=== PATIENT | female | born 1990 | race Caucasian/White ===

== ENCOUNTER → 2017-11-16 16:04 | Outpatient (CLI) | payer MEDICAID, SELFPAY ==
[2017-11-16 19:18] LABS: Chlamydia Trachomatis by PCR Negative (Negative); Neisserai gonorrhoeae by PCR Negative (Negative); Probe Check PASS; Sample Adequacy Control PASS; Specimen Processing Control PASS
[2017-12-27 12:49] LABS: HPV Reflexed? NOT INDICATED
== END ==
PROVIDERS: Visit Provider Obstetrics & Gynecology
DX: Z12.4 Encounter for screening for malignant neoplasm of cervix (principal); Z11.3 Encounter for screening for infections with a predominantly sexual mode of transmission
CPT/HCPCS: 87491; 87591; 88175; G0145

== ENCOUNTER → 2017-12-13 15:16 | Outpatient (CLI) | payer MEDICAID, SELFPAY ==
[2017-12-13 15:45] LABS: Color, Urine Yellow (Yellow); Glucose, Dipstick Normal (Normal); Ketone-Dipstick Negative (Negative); Leukocyte Esterase-Dipstick Negative /ul (Negative); Nitrite-Dipstick Negative (Negative); Occult Blood-Urine Negative /ul (Negative); Protein-Dipstick 15 mg/dl (Negative); Urine Bilirubin Dipstick Negative (Negative); Urine Clarity Clear (Clear); Urine Urobilinogen 4 mg/dl (Normal); Urine pH 6.5 (5.0 - 8.0)
[2017-12-13 15:55] LABS: Absolute Lymphocyte Count 1.86 X10^3/ul (0.83-4.51); Absolute Neutrophil Count 8.6 X10^3/uL (2.0-7.7); Basophil# 0.02 X10^3/uL; Basophil% 0.2 % (0-1); Eosinophil# 0.04 X10^3/uL; Eosinophils% 0.4 % (0-5); Hematocrit 38.6 % (37-47); Hemoglobin 12.4 g/dl (12.0-15.0); Lymphocyte # 1.86 X10^3/ul (4.0); Mean Corp Hgb Conc 32.1 g/gl (32-36); Mean Corpuscular Hgb 25.5 pg (27.0-32.0); Mean Corpuscular Volume 79.4 fL (81-99); Mean Platelet Vol. 11.2 fl (6.2-12.0); Monocyte# 0.38 X10^3/uL; Monocyte% 3.5 % (0-10); Neutrophil # 8.61 X10^3/uL (2.7-7.7); Neutrophil % 78.7 % (47-70); Platelet Count 216 K/mm3 (150-450); RBC Distribution Width CV 16.8 % (11.6-14.6); RBC Distribution Width SD 48.3 fl (35.1-43.9); Red Blood Count 4.86 M/mm3 (4.2-5.4); White Blood Count 10.9 K/mm3 (4.4-11.0)
[2017-12-13 15:57] LABS: POSITIVE COUNT NO; POSITIVE DIFFERENTIAL NO; POSITIVE MORPHOLOGY NO
[2017-12-13 16:30] LABS: Thyroid Stim Hormone (TSH) 2.26 uIU/mL (0.358-3.74)
[2017-12-13 16:37] LABS: Amphetamine Urine VISTA NEGATIVE (<1000 ng/mL); Barbiturate Urine VISTA NEGATIVE (< 200 ng/mL); Benzodiazepine Urine VISTA NEGATIVE (< 200 ng/mL); Cocaine Urine VISTA NEGATIVE (< 300 ng/mL); Ecstacy Urine VISTA NEGATIVE (< 500 ng/mL); Methadone Urine VISTA NEGATIVE (< 300 ng/mL); PCP Urine VISTA NEGATIVE (< 25 ng/mL); THC Urine VISTA NEGATIVE (< 50 ng/mL); Vista UDS pH Range 7
[2017-12-13 16:58] LABS: COTININE Drug Screen Negative (<200 ng/mL)
[2017-12-13 17:10] LABS: HIV - WCH Non-Reactive (Nonreactive); Rubella IgG 112.1 IU/mL
[2017-12-15 01:58] LABS: Prenatal RPR NONREACTIVE (NONREACTIVE)
[2017-12-15 11:23] LABS: HEPATITIS B SURFACE AG Negative (Negative); Hep C Antibodies <0.1 s/co ratio (0.0-0.9)
== END ==
PROVIDERS: Visit Provider Obstetrics & Gynecology
DX: Z34.82 Encounter for supervision of other normal pregnancy, second trimester (principal)
CPT/HCPCS: 36415; 80307; 81002; 84443; 85025; 86703; 86762; 86803; 87340

== ENCOUNTER → 2018-02-08 15:38 | Outpatient (CLI) | payer MEDICAID, SELFPAY ==
[2018-02-08 17:38] LABS: Hematocrit 32.7 % (37-47); Hemoglobin 10.5 g/dl (12.0-15.0); Mean Corp Hgb Conc 32.1 g/gl (32-36); Mean Corpuscular Hgb 25.7 pg (27.0-32.0); Mean Platelet Vol. 11.6 fl (6.2-12.0); Platelet Count 208 K/mm3 (150-450); RBC Distribution Width CV 16.7 % (11.6-14.6); RBC Distribution Width SD 48.7 fl (35.1-43.9); Red Blood Count 4.09 M/mm3 (4.2-5.4); White Blood Count 11.6 K/mm3 (4.4-11.0)
[2018-02-08 17:44] LABS: Glucose Challenge Gest 1H 50g 166 mg/dL (70-140)
[2018-02-08 17:46] LABS: Scan Indicated on CBC? Y/N NO
== END ==
PROVIDERS: Visit Provider Obstetrics & Gynecology
DX: Z34.82 Encounter for supervision of other normal pregnancy, second trimester (principal)
CPT/HCPCS: 36415; 82950; 85027

== ENCOUNTER → 2018-03-14 07:03 | Outpatient (CLI) | payer MEDICAID, SELFPAY ==
[2018-03-14 08:19] LABS: Glucose GTT-Gestation. Fasting 88 mg/dL (<105)
[2018-03-14 09:13] LABS: Glucose GTT-Gestational 1 Hr 185 mg/dL (<190)
[2018-03-14 10:00] LABS: Glucose GTT-Gestational 2 Hr 144 mg/dL (<165)
[2018-03-14 10:55] LABS: Glucose GTT-Gestational 3 Hr 114 L (<145)
== END ==
PROVIDERS: Referring Provider Obstetrics & Gynecology; Visit Provider Obstetrics & Gynecology
DX: O24.912 Unspecified diabetes mellitus in pregnancy, second trimester (principal); Z3A.00 Weeks of gestation of pregnancy not specified
CPT/HCPCS: 36415; 82951; 82952

== ENCOUNTER → 2018-03-29 11:54 | Outpatient (CLI) | payer MEDICAID, SELFPAY ==
[2018-03-29 12:16] LABS: Hematocrit 35.9 % (37-47); Hemoglobin 11.5 g/dl (12.0-15.0); Mean Corpuscular Hgb 25.5 pg (27.0-32.0); Mean Corpuscular Volume 79.6 fL (81-99); Mean Platelet Vol. 10.8 fl (6.2-12.0); Platelet Count 228 K/mm3 (150-450); RBC Distribution Width CV 17.2 % (11.6-14.6); RBC Distribution Width SD 49.5 fl (35.1-43.9); Red Blood Count 4.51 M/mm3 (4.2-5.4); White Blood Count 11.9 K/mm3 (4.4-11.0)
[2018-03-29 12:17] LABS: Scan Indicated on CBC? Y/N NO
[2018-03-29 12:23] LABS: Prothrombin Time (Protime)PT. 12.8 SECONDS (11.7-14.9)
[2018-03-29 12:24] LABS: Partial Thromboplast Time 27.8 Seconds (24.1-36.2)
[2018-03-29 12:50] LABS: AST(SGOT) 19 U/L (15-37); Alanine Aminotransfer ALT/SGPT 35 U/L (13-56); Creatinine, Serum 0.57 mg/dL (0.55-1.02); EST Glomerular Filtration Rate 132 mL/min (>60); Est Glom Filt Rate - Afr Amer 159 mL/min (>60); Uric Acid 5.9 mg/dL (2.6-6.0)
== END ==
PROVIDERS: Visit Provider Obstetrics & Gynecology
DX: O13.9 Gestational [pregnancy-induced] hypertension without significant proteinuria, unspecified trimester (principal)
CPT/HCPCS: 36415; 82565; 84450; 84460; 84550; 85027; 85610; 85730

== ENCOUNTER → 2018-03-30 14:19 | Outpatient (CLI) | payer MEDICAID, SELFPAY ==
[2018-03-30 14:50] LABS: 24 Hour Urine Protein 449.9 mg/24HR (<150 MG/24HR); 24HR. UA Prot. Total Volume 1525 mL; Urine Protein (24 Hour) 29.5 mg/dL (<11.9)
== END ==
PROVIDERS: Referring Provider Obstetrics & Gynecology; Visit Provider Obstetrics & Gynecology
DX: O13.9 Gestational [pregnancy-induced] hypertension without significant proteinuria, unspecified trimester (principal); Z3A.00 Weeks of gestation of pregnancy not specified
CPT/HCPCS: 81050; 84156

== ENCOUNTER → 2018-04-05 11:29 | Outpatient (CLI) | payer MEDICAID, SELFPAY ==
[2018-04-05 12:18] LABS: Hematocrit 33.8 % (37-47); Hemoglobin 10.9 g/dl (12.0-15.0); Mean Corp Hgb Conc 32.2 g/gl (32-36); Mean Corpuscular Hgb 25.6 pg (27.0-32.0); Mean Corpuscular Volume 79.5 fL (81-99); Mean Platelet Vol. 11.4 fl (6.2-12.0); Platelet Count 216 K/mm3 (150-450); RBC Distribution Width CV 17.1 % (11.6-14.6); RBC Distribution Width SD 49.2 fl (35.1-43.9); Red Blood Count 4.25 M/mm3 (4.2-5.4); White Blood Count 10.1 K/mm3 (4.4-11.0)
[2018-04-05 12:23] LABS: Scan Indicated on CBC? Y/N NO
[2018-04-05 12:27] LABS: Prothrombin Time (Protime)PT. 12.7 SECONDS (11.7-14.9)
[2018-04-05 12:28] LABS: Partial Thromboplast Time 28.6 Seconds (24.1-36.2)
[2018-04-05 12:51] LABS: AST(SGOT) 17 U/L (15-37); Alanine Aminotransfer ALT/SGPT 28 U/L (13-56); Creatinine, Serum 0.73 mg/dL (0.55-1.02); EST Glomerular Filtration Rate 100 mL/min (>60); Est Glom Filt Rate - Afr Amer 121 mL/min (>60); Uric Acid 6.7 mg/dL (2.6-6.0)
== END ==
PROVIDERS: Visit Provider Obstetrics & Gynecology
DX: Z34.83 Encounter for supervision of other normal pregnancy, third trimester (principal); Z36.85 Encounter for antenatal screening for Streptococcus B
CPT/HCPCS: 36415; 82565; 84450; 84460; 84550; 85027; 85610; 85730; 87081

== ENCOUNTER → 2018-04-06 16:26 | Outpatient (CLI) | payer MEDICAID, SELFPAY ==
[2018-04-06 17:09] LABS: 24HR. UA Prot. Total Volume 1500 mL
== END ==
PROVIDERS: Referring Provider Obstetrics & Gynecology; Visit Provider Obstetrics & Gynecology
DX: Z34.83 Encounter for supervision of other normal pregnancy, third trimester (principal); Z36.85 Encounter for antenatal screening for Streptococcus B
CPT/HCPCS: 84156

== ENCOUNTER 2018-04-12 05:25 | Inpatient (IN) | payer MEDICAID, SELFPAY ==
[2018-04-12] VITALS (26 sets, daily range): BP systolic 133–182; BP diastolic 69–100; PULSE 74–94; RESP 14–20; TEMP 36.2–36.7; O2SAT 97–100; BMI 53.1
[2018-04-12] MEDS: Lactated Ringers 1,000 ML 999 ML IV ×2 (05:50→09:50)
[2018-04-12 06:23] LABS: Absolute Lymphocyte Count 2.97 X10^3/ul (0.83-4.51); Absolute Neutrophil Count 7.8 X10^3/uL (2.0-7.7); Basophil# 0.03 X10^3/uL; Basophil% 0.3 % (0-1); Eosinophil# 0.03 X10^3/uL; Eosinophils% 0.3 % (0-5); Hematocrit 33.1 % (37-47); Hemoglobin 10.7 g/dl (12.0-15.0); Lymphocyte # 2.97 X10^3/ul (4.0); Lymphocyte % 26.1 % (19-41); Mean Corp Hgb Conc 32.3 g/gl (32-36); Mean Corpuscular Hgb 25.7 pg (27.0-32.0); Mean Corpuscular Volume 79.6 fL (81-99); Mean Platelet Vol. 11.3 fl (6.2-12.0); Monocyte# 0.55 X10^3/uL; Monocyte% 4.8 % (0-10); Neutrophil # 7.79 X10^3/uL (2.7-7.7); Neutrophil % 68.2 % (47-70); Platelet Count 215 K/mm3 (150-450); RBC Distribution Width CV 16.9 % (11.6-14.6); RBC Distribution Width SD 48.6 fl (35.1-43.9); Red Blood Count 4.16 M/mm3 (4.2-5.4); White Blood Count 11.4 K/mm3 (4.4-11.0)
[2018-04-12 06:29] LABS: POSITIVE COUNT NO; POSITIVE DIFFERENTIAL NO; POSITIVE MORPHOLOGY NO
[2018-04-12 06:30] LABS: International Normalized Ratio 1.1; Prothrombin Time (Protime)PT. 13.5 SECONDS (11.7-14.9)
[2018-04-12 06:31] LABS: Partial Thromboplast Time 27.4 Seconds (24.1-36.2)
[2018-04-12] MEDS: Sodium Citrate/Citric Acid 30 ML UDC PO (06:53)
[2018-04-12] MEDS: Lactated Ringers 1,000 ML 150 ML IV (06:56)
--- NOTE | 2018-04-12 07:04 | DCINST_ITS ---
Discharge Diet: No Restrictions Discharge Activity: Return to Normal Activity, May Not Drive, May not drive while taking narcotic pain medications., May Shower Return to work on:: 06/11/18 May shower in (days): 0 May resume sexual activity in: 4-6 weeks Call your doctor if your incision/area has: Sudden Increased Bleeding, Increased Pain/ Swelling, Increased Redness, Foul Smelling Discharge, Swelling at the incision site Call your doctor if you observe: Fever of 101 or Higher, Inability to urinate, Inability to have a bowel movement, Using more than one pad per hour, Shortness of breath, Chest pain, Calf discomfort, Uncontrolled pain, - - uncontrolled headache Cleanse incision/area with: Soap & Water Additional Instructions: If you experience any of the following, contact your healthcare provider. * Bleeding that soaks a pad every hour for 2 hours * Fever 100.4 or higher * Unrelieved incision or abdominal pain * Swelling, redness, discharge or bleeding from your incision or episiotomy site * Your incision begins to separate * Problems urinating (including inability to urinate or burning while urinating). * Visual changes * Severe headache * Flu-like symptoms * Pain or redness in one of both of your breasts * Pain, warmth, tenderness or swelling in your legs, especially the calf area * Frequent nausea and vomiting * Symptoms of depression or anxiety If you experience any of the following, call 911 or go to the nearest Emergency Room. * Chest pain * Problems breathing * Seizure activity * Partial or complete paralysis of a body part, slurred speech, weakness or drooping of the face, or a sudden inability to walk or hold your balance Allergies/Adverse Reactions: Allergies No Known Allergies Allergy (Verified 04/12/18 05:56) Medications to take at Discharge Ibuprofen 600 mg PO 4X/DAY #30 tab 04/12/18 Oxycodone [Oxyir] 5 - 10 mg PO Q4H PRN PRN 7 Days #20 tab 04/12/18 Vits [Prenatabs FA ] 1 tablet PO DAILY 04/12/18 The following prescriptions were given: Oxycodone [Oxyir] 5 - 10 mg PO Q4H PRN PRN 7 Days #20 tab PRN Reason: Mod-Severe Pain () Ibuprofen 600 mg PO 4X/DAY #30 tab Follow-Up: Call to make an appointment with your doctor for an incision check in 1-2 weeks. You will also need a 6 week post- follow up appointment. Test results from this visit will be discussed in further detail at your follow- up appointment, if applicable. Please Follow Up With: Gabriel Sow MD When: one week Primary Care Physician: Care Physician,No Primary [Primary Care Provider] - Proposed Discharge Date: 04/14/18
--- NOTE | 2018-04-12 07:05 | PCM.OPRPT ---
Problem List (1) Pre-eclampsia added to pre-existing hypertension Status: Chronic Report of Operation Date of Procedure: 04/12/18 Pre-Operative Diagnosis: 36 6/7 weeks with superimposed preeclampsia on chronic hypertension Post-Operative Diagnosis: Same Surgery/Procedure Performed:: Repeat Low Transverse Section Description of Surgical Findings:: Significant scarring present between anterior uterine surface and anterior abdominal wall. Bladder adherant to the lower anterior uterine segment. Lower uterine segemnt extremely thin. Ovaries and fallopian tubes appeared normal. Delivery of a live male with APGARs 8/9. Placenta anterior. Amniotic fluid clear. vice president payer: Lonnie Schwartz Type of Anesthesia:: Spinal Anesthesiologist: Karthik Hernandez Special Medications: none Specimen's removed: none Drains: casper Estimated Blood Loss (mL): 400cc Fluids Replaced: 1100cc lr Description of Procedure: Missy was counselled on indications for the procedure prior to taking to the OR. She was taken to the OR with IV running. She was given three grams of Ancef intravenously for surgical prophylaxis. Spinal anesthesia was introduced without complication. She was then prepped and draped in the supine position with a leftward tilt. A casper catheter was placed. Once anesthesia was deemed adequate a Pfannesteil skin incision was made through the previous scar. The underlying subcutaneous tissue was then dissected down to the level of the fascia. The fascia was then incised horizontally in the midline and this defect was extended bilaterally with the Newell scissors. The upper portion of the fascial defect was then grasped with two Dean clamps, elevated and the underlying rectus muscles dissected off with sharp and blunt dissection. In a similar fashion the rectus muscles were dissected off the lower fascial defect. The rectus muscles were then in the midline, the peritoneum identified and entered sharply. The peritoneal defect was extended using blunt retraction. A bladder blade was then placed. The lower uterine segment was then incised in a transverse fashion. Once the cavity was entered the uterine defect was extended using blunt lateral and superior traction. The baby's head was then delivered without difficulty followed by the body. The nares and mouth were suctioned with a bulb suction. Delayed cord clamping was employed. The cord was then clamped and cut and the baby handed to the waiting nurse for evaluation. The placenta was then delivered manually. Adhesions between the anterior uterine segment and omentum and abdominal wall were dissected to allow exteriorization of the uterus.The uterus was exteriorized and cleared of all clot and membranes. The uterine defect was then closed in two layers with 0-Vicryl suture. The posterior cul de sac and gutters were cleared of all clot and fluid. The uterus was returned to the abdomen. The uterine incision was reinspected and found to be hemostatic. The peritoneum was then closed with 2-0 Vicryl in a running fashion. The rectus muscles were reapproximated with interrupted sutures of 0-Vicryl. The fashion was closed with a running stitch of #1 Stratofix suture. The subcutaneous tissue was closed with a running stitch of 2-0 Vicryl. The skin was closed in a subcuticular fashion with 4-0 Monocryl. Sponge, lap, needle, and instrument counts were correct. She was taken to the recovery room in stable condition. Grafts/Implants Used: Gina to anterior surface of uterus and subcutaneous layer - Complications none - Admit VTE Documentation VTE Present on Admission: No VTE Mechan Device Prophylaxis: SCD's VTE Pharm Prophylaxis ordered?: No
--- NOTE | 2018-04-12 07:18 | OP.PCM_ITS ---
Problem List (1) Pre-eclampsia added to pre-existing hypertension Status: Chronic Report of Operation Date of Procedure: 04/12/18 Pre-Operative Diagnosis: 36 6/7 weeks with superimposed preeclampsia on chronic hypertension Post-Operative Diagnosis: Same Surgery/Procedure Performed:: Repeat Low Transverse Section Description of Surgical Findings:: Significant scarring present between anterior uterine surface and anterior abdominal wall. Bladder adherant to the lower anterior uterine segment. Lower uterine segemnt extremely thin. Ovaries and fallopian tubes appeared normal. Delivery of a live male with APGARs 8/9. Placenta anterior. Amniotic fluid clear. pneumatic tube fitter: Lonnie Schwartz Type of Anesthesia:: Spinal Anesthesiologist: Karthik Hernandez Special Medications: none Specimen's removed: none Drains: casper Estimated Blood Loss (mL): 400cc Fluids Replaced: 1100cc lr Description of Procedure: Missy was counselled on indications for the procedure prior to taking to the OR. She was taken to the OR with IV running. She was given three grams of Ancef intravenously for surgical prophylaxis. Spinal anesthesia was introduced with out complication. She was then prepped and draped in the supine position with a leftward tilt. A casper catheter was placed. Once anesthesia was deemed adequate a Pfannesteil skin incision was made through the previous scar. The underlying subcutaneous tissue was then dissected down to the level of the fascia. The fascia was then incised horizontally in the midline and this defect was extended bilaterally with the Newell scissors. The upper portion of the fascial defect was then grasped with two Dean clamps, elevated and the underlying rectus muscles dissected off with sharp and blunt dissection. In a similar fashion the rectus muscles were dissected off the lower fascial defect. The rectus muscles were then in the midline, the peritoneum identified and entered sharply. The peritoneal defect was extended using blunt retraction. A bladder blade was then placed. The lower uterine segment was then incised in a transverse fashion. Once the cavity was entered the uterine defect was extended using blunt lateral and superior traction. The baby's head was then delivered without difficulty followed by the body. The nares and mouth were suctioned with a bulb suction. Delayed cord clamping was employed. The cord was then clamped and cut and the baby handed to the waiting nurse for evaluation. The placenta was then delivered manually. Adhesions between the anterior uterine segment and omentum and abdominal wall were dissected to allow exteriorization of the uterus.The uterus was exteriorized and cleared of all clot and membranes. The uterine defect was then closed in two layers with 0- Vicryl suture. The posterior cul de sac and gutters were cleared of all clot and fluid. The uterus was returned to the abdomen. The uterine incision was reinspected and found to be hemostatic. The peritoneum was then closed with 2-0 Vicryl in a running fashion. The rectus muscles were reapproximated with interrupted sutures of 0-Vicryl. The fashion was closed with a running stitch of #1 Stratofix suture. The subcutaneous tissue was closed with a running stitch of 2-0 Vicryl. The skin was closed in a subcuticular fashion with 4-0 Monocryl. Sponge, lap, needle, and instrument counts were correct. She was taken to the recovery room in stable condition. Grafts/Implants Used: Gina to anterior surface of uterus and subcutaneous layer - Complications none - Admit VTE Documentation VTE Present on Admission: No VTE Mechan Device Prophylaxis: SCD's VTE Pharm Prophylaxis ordered?: No
[2018-04-12] MEDS: Oxytocin 30 units/NS 500 ml 30 UNITS/500 ML IV.SOLN 167 UNITS IV (07:53)
[2018-04-12] MEDS: Lactated Ringers 1,000 ML 100 ML IV ×3 (09:12→22:34)
--- NOTE | 2018-04-12 10:30 | NURSING ---
chris from dr velázquez office notified of last 3 bp's 169/91 170/92 163/82 states she will report these to dr velázquez and call us back
[2018-04-12] MEDS: Methylergonovine 0.2 MG/ML Ampul IM (11:48)
[2018-04-12] MEDS: Labetalol 200 MG Tablet PO ×2 (11:49→18:31)
[2018-04-12] MEDS: oxyCODONE 5 MG Tablet PO ×2 (13:15→20:35)
[2018-04-12] MEDS: Ondansetron 4 MG/2 ML Vial IV (15:08)
[2018-04-12] MEDS: Cefazolin 1 GM/50 ML BAG IV ×2 (15:09→23:52)
[2018-04-12] MEDS: 0.9% Saline Lock 10 ML Syringe IV (15:09)
--- NOTE | 2018-04-12 16:03 | NURSING ---
[address] velázquez office to notify of BP's phone rings busy
--- NOTE | 2018-04-12 16:04 | NURSING ---
[address] velázquez office a second time to notify of elevated BP's phone rings busy a second time
--- NOTE | 2018-04-12 17:12 | NURSING ---
1600 pericare, bleeding small rubra. Assisted up to chair.Gait steady
--- NOTE | 2018-04-12 17:53 | PCM.PN.BLA ---
Progress Note Patient seen. Denies headache, vision changes, shortness of breath or upper abdominal pain. Pain is controlled. She has been out of bed and is sitting in chair on visit. VSS, BPs 130s-180s/70s-100s . Patient denies hx HTN outside of pregnancies. Cannot recall hypertensive she took during G1, but notes it did not work. Repeat BP 157/96. Will give additional dose Labetalol now and increase maintenance dosing.
[2018-04-12 19:05] LABS: AST(SGOT) 44 U/L (15-37); Alanine Aminotransfer ALT/SGPT 40 U/L (13-56); Creatinine, Serum 0.62 mg/dL (0.55-1.02); EST Glomerular Filtration Rate 121 mL/min (>60); Est Glom Filt Rate - Afr Amer 146 mL/min (>60); Estimated Creatinine Clearance 120.47 ml/min
[2018-04-12] MEDS: Labetalol 200 MG Tablet 400 MG PO (21:38)
[2018-04-12] MEDS: Ketorolac 30 MG/ML Syringe IV (23:52)
[2018-04-13] VITALS (7 sets, daily range): BP systolic 129–170; BP diastolic 66–89; PULSE 79–96; RESP 16–20; TEMP 36.1–37.1; O2SAT 94–97
[2018-04-13] MEDS: Ketorolac 30 MG/ML Syringe IV ×2 (06:57→12:21)
[2018-04-13 07:13] LABS: Hematocrit 25.4 % (37-47); Hemoglobin 8.1 g/dl (12.0-15.0); Mean Corp Hgb Conc 31.9 g/gl (32-36); Mean Corpuscular Volume 81.7 fL (81-99); Mean Platelet Vol. 11.3 fl (6.2-12.0); Platelet Count 145 K/mm3 (150-450); RBC Distribution Width CV 17.1 % (11.6-14.6); RBC Distribution Width SD 49.2 fl (35.1-43.9); Red Blood Count 3.11 M/mm3 (4.2-5.4); Scan Indicated on CBC? Y/N NO; White Blood Count 7.8 K/mm3 (4.4-11.0)
[2018-04-13] MEDS: oxyCODONE 5 MG Tablet PO ×2 (07:20→12:21)
--- NOTE | 2018-04-13 08:33 | PN.OBGYN_ITS ---
Subjective: Doing well. Pain reasonably controlled. Tolerating PO. Bleeding light. Pumping breast milk. Objective: Afeb VSS BP good on labetalol. - Physical Exam General: Alert, Oriented x3, Cooperative, No apparent distress Lungs: Clear to auscultation, Normal air movement Cardiovascular: Regular rate, Regular Rhythm Abdomen: Soft, Non Tender, Non-Distended, - - Incision dressing dry. No erythema Extremities: Edema - 1+ Skin: No rashes Neurological: Neuro grossly intact Psych/Mental Status: Normal Affect Comment: Lochia light Vital Signs Temp Pulse Resp BP Pulse Ox 97.0 F L 82 16 134/74 H 97 04/13/18 03:50 04/13/18 07:00 04/13/18 07:00 04/13/18 03:50 04/13/18 07:00 Oxygen Delivery Method Room Air Weight: 319 lb 7.197 oz Body Mass Index (BMI) 53.1 Intake and Output for Last 24 Hours 04/11/18 04/12/18 04/13/18 23:59 23:59 23:59 Intake Total 3600 / 3600 2310 / 2310 Output Total 150 / 150 1400 / 1400 Balance 3450 / 3450 910 / 910 Laboratory Tests Past 24 Hrs 04/12/18 04/13/18 18:20 07:00 WBC 7.8 RBC 3.11 L Hgb 8.1 L Hct 25.4 L MCV 81.7 MCH 26.0 L MCHC 31.9 L RDW 17.1 H RDW Differential 49.2 H Plt Count 145 L MPV 11.3 Creatinine 0.62 Estim Creat Clear Calc 120.47 Est GFR (MDRD) Af Amer 146 Est GFR (MDRD) Non-Af 121 AST 44 H ALT 40 Medical Necessity - Tobacco Use Smoking Status: Never smoker Assessment/Plan Doing well on POD#1. s/p repeat LTCS. Will d/c casper catheter. No overt signs of preeclampsia. Patient would like early discharge as baby transfered to [facility] for respiratory difficulties. From medical standpoint is cleared. Home going instructions and warnings given.
--- NOTE | 2018-04-13 08:36 | DS.PCM_ITS ---
Discharge Date and Diagnosis Date of Admission: 04/12/18 Date of Discharge: 04/13/18 - Primary Discharge Diagnosis S/P repeat LTCS, preeclampsia, PIH - Secondary Discharge Diagnosis Chronic Problems Pre-eclampsia added to pre-existing hypertension (Chronic) Hospital Course and Treatment Operations: - - Repeat LTCS Summary of Care Provided: The patient is a 27 year old F [admitted at 36w6d [facility] for repeat C/S secondary to worsening induced hypertension and signs of early preeclampsia. Repeat section was performed without significant complications. SHe had a normal early recovery. BP was well controlled with labetalol. She was discharged early due to baby's transfer to [facility]] - Physical Exam Vital Signs Temp Pulse Resp BP Pulse Ox 97.0 F L 82 16 134/74 H 97 04/13/18 03:50 04/13/18 07:00 04/13/18 07:00 04/13/18 03:50 04/13/18 07:00 Oxygen Delivery Method Room Air Weight: 319 lb 7.197 oz Body Mass Index (BMI) 53.1 Intake and Output for Last 24 Hours 04/11/18 04/12/18 04/13/18 23:59 23:59 23:59 Intake Total 3600 / 3600 2310 / 2310 Output Total 150 / 150 1400 / 1400 Balance 3450 / 3450 910 / 910 Laboratory Tests Past 24 Hrs 04/12/18 04/13/18 18:20 07:00 WBC 7.8 RBC 3.11 L Hgb 8.1 L Hct 25.4 L MCV 81.7 MCH 26.0 L MCHC 31.9 L RDW 17.1 H RDW Differential 49.2 H Plt Count 145 L MPV 11.3 Creatinine 0.62 Estim Creat Clear Calc 120.47 Est GFR (MDRD) Af Amer 146 Est GFR (MDRD) Non-Af 121 AST 44 H ALT 40 Discharge Diet: No Restrictions Discharge Activity: Return to Normal Activity, May Not Drive, May not drive while taking narcotic pain medications., May Shower Return to work on:: 06/11/18 May shower in (days): 0 May resume sexual activity in: 4-6 weeks Call your doctor if your incision/area has: Sudden Increased Bleeding, Increased Pain/ Swelling, Increased Redness, Foul Smelling Discharge, Swelling at the incision site Call your doctor if you observe: Fever of 101 or Higher, Inability to urinate, Inability to have a bowel movement, Using more than one pad per hour, Shortness of breath, Chest pain, Calf discomfort, Uncontrolled pain, - - uncontrolled headache Cleanse incision/area with: Soap & Water Home Medications: Medications to take at Discharge RX: Ibuprofen 600 mg PO 4X/DAY #30 tab 04/12/18 RX: Oxycodone [Oxyir] 5 - 10 mg PO Q4H PRN PRN 7 Days #20 tab 04/12/18 RX: Vits [Prenatabs FA ] 1 tablet PO DAILY 04/12/18 Following Prescrptions Were Given to Patient: RX: Oxycodone [Oxyir] 5 - 10 mg PO Q4H PRN PRN 7 Days #20 tab PRN Reason: Mod-Severe Pain (4-11/22) RX: Ibuprofen 600 mg PO 4X/DAY #30 tab Primary Care Physician: Care Physician,No Primary [Primary Care Provider] - Please Follow Up With: Gabriel Sow MD When: one week Disposition: Home Minutes spent on discharge:: 15 Patient Condition:: Good Medical Necessity - Tobacco Use Smoking Status: Never smoker Meaningful Use Info Meaningful Use Diagnoses (Choose all that apply): None applicable
[2018-04-13] MEDS: 0.9% Saline Lock 10 ML Syringe IV ×2 (09:29→12:21)
[2018-04-13] MEDS: Labetalol 200 MG Tablet 400 MG PO (09:31)
[2018-04-13] MEDS: Prenatal Vits Tablet 1 TABLET PO (09:31)
== END 2018-04-13 15:25 | disposition home or self-care (01) | DRG 540 ==
PROVIDERS: Obstetrics & Gynecology; Admitting Provider Obstetrics & Gynecology; Referring Provider Obstetrics & Gynecology; Visit Provider Obstetrics & Gynecology
PROC: 10D00Z1 Extraction of Products of Conception, Low, Open Approach (ICD-10-PCS; CPT 59514; principal; 2018-04-12 07:15)
DX: O11.4 Pre-existing hypertension with pre-eclampsia, complicating childbirth (principal); O34.211 Maternal care for low transverse scar from previous cesarean delivery; O60.14X0 Preterm labor third trimester with preterm delivery third trimester, not applicable or unspecified; O99.214 Obesity complicating childbirth; E66.9 Obesity, unspecified; Z3A.36 36 weeks gestation of pregnancy; Z37.0 Single live birth
CPT/HCPCS: 82565; 84450; 84460; 85025; 85027; 85610; 85730; 86850; 86900; 99218; J7040; J7120; 90686; A4216; G0378; J2310; J2405

== ENCOUNTER → 2018-06-07 11:53 | Outpatient (CLI) | payer MEDICAID, SELFPAY ==
[2018-04-12 05:41] VITALS: BMI 53.1
[2018-06-07 13:01] LABS: Progesterone Level 0.32 ng/mL (See Comment)
[2018-06-07 13:04] LABS: hCG Titer Quant., Serum < 1 mIU/mL (<9 non-preg)
== END ==
PROVIDERS: Visit Provider Obstetrics & Gynecology
DX: Z30.014 Encounter for initial prescription of intrauterine contraceptive device (principal)
CPT/HCPCS: 36415; 84144; 84702

== ENCOUNTER → 2018-06-12 16:22 | Outpatient (CLI) | payer MEDICAID, SELFPAY ==
[2018-04-12 05:41] VITALS: BMI 53.1
[2018-06-12 20:36] LABS: Chlamydia Trachomatis by PCR Negative (Negative); Neisserai gonorrhoeae by PCR Negative (Negative); Probe Check PASS; Sample Adequacy Control PASS; Specimen Processing Control PASS
== END ==
PROVIDERS: Visit Provider Obstetrics & Gynecology
DX: Z30.430 Encounter for insertion of intrauterine contraceptive device (principal); Z11.3 Encounter for screening for infections with a predominantly sexual mode of transmission
CPT/HCPCS: 87491; 87591

== ENCOUNTER → 2022-03-04 | Outpatient (CLI) | payer MEDICAID, SELFPAY ==
[2022-03-04 14:23] LABS: Absolute Lymphocyte Count 1.98 X10^3/uL (0.83-4.51); Absolute Neutrophil Count 9.4 X10^3/uL (2.0-7.7); Basophil# 0.05 X10^3/uL; Basophil% 0.4 % (0-1); Eosinophil# 0.07 X10^3/uL; Eosinophils% 0.6 % (0-5); Hematocrit 37.6 % (37-47); Hemoglobin 11.9 g/dL (12.0-15.0); Lymphocyte # 1.98 X10^3/ul (0.83-4.51); Lymphocyte % 16.1 % (19-41); Mean Corp Hgb Conc 31.6 g/dL (32-36); Mean Corpuscular Hgb 26.6 pg (27.0-32.0); Mean Corpuscular Volume 84.1 fL (81-99); Mean Platelet Vol. 11.3 fl (6.2-12.0); Monocyte# 0.64 X10^3/uL; Monocyte% 5.2 % (0-10); NRBC Flagged by Analyzer 0 % (0-5); Neutrophil # 9.42 X10^3/uL (2.7-7.7); Neutrophil % 76.7 % (47-70); Platelet Count 259 K/mm3 (150-450); RBC Distribution Width CV 15.8 % (11.6-14.6); RBC Distribution Width SD 48.2 fl (35.1-43.9); Red Blood Count 4.47 M/mm3 (4.2-5.4); White Blood Count 12.3 K/mm3 (4.4-11.0)
[2022-03-04 16:57] LABS: HIV - WCH Non-Reactive (Nonreactive); Hepatitis B Surface Antigen Non-Reactive (Nonreactive); Hepatitis C Antibody Non-Reactive (Nonreactive); Rubella IgG Reactive (Nonreactive); Syphilis Antibodies Non-reactive
[2022-03-06 09:22] LABS: V-Zoster IgG (Immunity) 553 index (Immune >165)
[2022-03-10 16:54] LABS: HPV APTIMA, High Risk Negative (Negative)
== END | disposition home or self-care (01) ==
LOC: WOBLAB 13:39
PROVIDERS: Visit Provider Obstetrics & Gynecology
DX: Z34.90 Encounter for supervision of normal pregnancy, unspecified, unspecified trimester (principal); N91.2 Amenorrhea, unspecified
CPT/HCPCS: 36415; 85025; 86703; 86762; 86780; 86787; 86803; 87086; 87088; 87340; 87624; 88175; G0145

== ENCOUNTER → 2022-05-04 | Outpatient (CLI) | payer MEDICAID, SELFPAY ==
[2022-05-04 10:19] LABS: Absolute Lymphocyte Count 2.02 X10^3/uL (0.83-4.51); Absolute Neutrophil Count 8.3 X10^3/uL (2.0-7.7); Basophil# 0.03 X10^3/uL; Basophil% 0.3 % (0-1); Eosinophil# 0.11 X10^3/uL; Hematocrit 34.4 % (37-47); Lymphocyte # 2.02 X10^3/ul (0.83-4.51); Lymphocyte % 18.1 % (19-41); Mean Corpuscular Hgb 26.8 pg (27.0-32.0); Mean Corpuscular Volume 83.7 fL (81-99); Mean Platelet Vol. 11.3 fl (6.2-12.0); Monocyte# 0.59 X10^3/uL; Monocyte% 5.3 % (0-10); NRBC Flagged by Analyzer 0 % (0-5); Neutrophil # 8.33 X10^3/uL (2.7-7.7); Neutrophil % 74.3 % (47-70); Platelet Count 243 K/mm3 (150-450); RBC Distribution Width CV 16.9 % (11.6-14.6); RBC Distribution Width SD 51.2 fl (35.1-43.9); Red Blood Count 4.11 M/mm3 (4.2-5.4); White Blood Count 11.2 K/mm3 (4.4-11.0)
[2022-05-04 10:29] LABS: Glucose Challenge Gest 1H 50g 101 mg/dL (70-140)
[2022-05-04 10:49] LABS: Syphilis Antibodies Non-reactive
== END | disposition home or self-care (01) ==
LOC: WOBLAB 09:11
PROVIDERS: Visit Provider Obstetrics & Gynecology
DX: Z34.82 Encounter for supervision of other normal pregnancy, second trimester (principal)
CPT/HCPCS: 36415; 82950; 85025; 86780

== ENCOUNTER → 2022-07-14 | Outpatient (CLI) | payer MEDICAID, SELFPAY ==
[2022-07-14 15:26] LABS: Absolute Lymphocyte Count 2.13 X10^3/uL (0.83-4.51); Absolute Neutrophil Count 9.6 X10^3/uL (2.0-7.7); Basophil# 0.04 X10^3/uL; Basophil% 0.3 % (0-1); Eosinophil# 0.05 X10^3/uL; Eosinophils% 0.4 % (0-5); Hemoglobin 11.2 g/dL (12.0-15.0); Lymphocyte # 2.13 X10^3/ul (0.83-4.51); Lymphocyte % 17.3 % (19-41); Mean Corp Hgb Conc 32.9 g/dL (32-36); Mean Corpuscular Hgb 27.1 pg (27.0-32.0); Mean Corpuscular Volume 82.1 fL (81-99); Mean Platelet Vol. 11.5 fl (6.2-12.0); Monocyte# 0.46 X10^3/uL; Monocyte% 3.7 % (0-10); NRBC Flagged by Analyzer 0 % (0-5); Neutrophil # 9.56 X10^3/uL (2.7-7.7); Neutrophil % 77.6 % (47-70); Platelet Count 257 K/mm3 (150-450); RBC Distribution Width CV 16.9 % (11.6-14.6); RBC Distribution Width SD 50.1 fl (35.1-43.9); Red Blood Count 4.14 M/mm3 (4.2-5.4); White Blood Count 12.3 K/mm3 (4.4-11.0)
[2022-07-14 15:43] LABS: Glucose Challenge Gest 1H 50g 95 mg/dL (70-140)
[2022-07-14 16:19] LABS: Syphilis Antibodies Non-reactive
== END | disposition home or self-care (01) ==
LOC: WOBLAB 14:11
PROVIDERS: Visit Provider Obstetrics & Gynecology
DX: Z34.82 Encounter for supervision of other normal pregnancy, second trimester (principal)
CPT/HCPCS: 36415; 82950; 85025; 86780

== ENCOUNTER 2022-08-11 13:55 | Outpatient (CLI) | payer MEDICAID, SELFPAY ==
[2022-08-11] VITALS (70 sets, daily range): BP systolic 143–225; BP diastolic 76–106; PULSE 52–85; RESP 18; TEMP 35.7; O2SAT 84–100; BMI 56.7
[2022-08-11 14:54] LABS: Protein:Creat Ratio 4670 mg/g CRE (0-200)
[2022-08-11 14:55] LABS: Hematocrit 32.1 % (37-47); Hemoglobin 11.3 g/dL (12.0-15.0); Mean Corp Hgb Conc 35.2 g/dL (32-36); Mean Corpuscular Hgb 29.2 pg (27.0-32.0); Mean Corpuscular Volume 82.9 fL (81-99); Platelet Count 241 K/mm3 (150-450); RBC Distribution Width CV 17.4 % (11.6-14.6); RBC Distribution Width SD 52.2 fl (35.1-43.9); Red Blood Count 3.87 M/mm3 (4.2-5.4); White Blood Count 11.1 K/mm3 (4.4-11.0)
[2022-08-11 14:58] LABS: Uric Acid 6.7 mg/dL (2.6-6.0)
[2022-08-11 15:00] LABS: ALB/GLOB Ratio 0.5 RATIO (0.9-2.4); AST(SGOT) 16 U/L (15-37); Alanine Aminotransfer ALT/SGPT 22 U/L (13-56); Albumin, Serum 2.1 g/dL (3.2-5.0); Alkaline Phosphatase 92 U/L (45-117); Anion Gap 7 (5-15); BUN 11 mg/dL (7-18); BUN/Creat Ratio 15.6 RATIO (10-20); Calcium,Total 8.4 mg/dL (8.5-10.1); Chloride 111 mmol/L (98-107); EST Glomerular Filtration Rate 101 mL/min (>60); Est Glom Filt Rate - Afr Amer 123 mL/min (>60); Globulin 4.4 g/dL (2.2-4.2); Glucose 85 mg/dL (74-106); Potassium 3.6 mmol/L (3.5-5.1); Protein, Total 6.5 g/dL (6.4-8.2); Sodium Level 138 mmol/L (136-145)
[2022-08-11] MEDS: hydrALAZINE 20 MG/ML Vial 10 MG IV ×2 (15:03→15:28)
[2022-08-11] MEDS: Magnesium Sulfate 4gm/100mL 4 GM/100 ML IV.SOLN. IV (15:05)
--- NOTE | 2022-08-11 15:24 | HP.PCM.OB_ITS ---
History and Physical Date of Admission: 08/11/22 Chief complaint: Headache and elevated blood pressures History present illness: 32-year-old G6, P5 at 30 weeks and 2 days with ZAFAR 10/18/2022 arrives from the office with headache and elevated blood pressures. Denies visual changes, chest pain, shortness of breath, nausea vomit, right upper quadrant pain. Patient states good movement. is complicated by BMI 56, history of section x5, and now preeclampsia with severe features based on severe range blood pressures Obstetric history: G1: 38 weeks primary section female 6 pounds 7 ounces G2: 39-week repeat section male 7 pounds 8 ounces G3: 39-week repeat section female 8 pounds 1 ounce G4: 39-week repeat section female 7 pounds 2 ounces G5: 37-week repeat section male 5 pounds 2 ounces G6: Current Past medical history: None Medications: vitamin Past surgical history: section x5, eye surgery Allergies: No known drug allergies Social history: Denies smoking, alcohol use, drug use Family history: Denies history DVT or PE Review of systems: Besides above pertinent positives a full review of systems was performed and found to be negative Physical exam: Vitals: Blood pressure 224/105 pulse 70 General: Normal-appearing no acute distress HEENT: Normocephalic/atraumatic no cervical lymphadenopathy Cardiac/respiratory: No use of accessory muscles, nonlabored breathing Abdomen: Soft, nontender, obese, negative right upper quadrant pain Extremities: No peripheral edema normal peripheral pulses. DTRs +2 bilaterally in lower extremities. Negative clonus bilaterally Psych: Normal affect and demeanor nonpressured speech Labs: White blood cell count 11.1 hemoglobin 11.3 hematocrit 32.1% platelets 241. Sodium 138 potassium 3.6 creatinine 0.7 total bilirubin 0.6 AST 16 ALT 22. Urine Protein Creatine Ratio 4670 mg/g Assessment and plan: 32-year-old at 30 weeks and 2 days sent from office with headache and elevated blood pressures given orders to nursing at that time for HELLP labs, IV placement, and BP's [id number]. Patient arrived to triage with severe range blood pressures given orders to nursing for hydralazine 10 mg IV and magnesium 6 g bolus and to run at 2 g an hour. Patient seen and examined upon arrival repeat blood pressure severe range given orders for 10 mg IV hydralazine. Patient diagnosed with preeclampsia with severe features based on severe range blood pressures. Educated patient on findings and diagnosis of preeclampsia with severe features based on severe range blood pressures, educated patient on need to lower blood pressure along with antepartum monitoring continuously with M specialist. Patient states understanding and wishes to proceed. Called [facility] transport line discussed with Dr. Kimmy Mejía about case, Dr. Mejía accepts transport. Instructed nursing to call transport team. We will continue to monitor blood pressures and treat appropriately and to transport to [facility]. For Stacie now
[2022-08-11] MEDS: Magnesium Sulfate 4gm/100mL 2 GM/50 ML IV.SOLN. IV (15:27)
[2022-08-11] MEDS: Lactated Ringers 1,000 ML 15 ML IV (15:27)
[2022-08-11] MEDS: Magnesium Sulfate 20 GM/500 ML BAG IV (15:39)
[2022-08-11] MEDS: Labetalol (Prefilled) 20 MG/4 ML IV (16:00)
[2022-08-11] MEDS: Betamethasone/Betamethasone 30 MG/5 ML Vial 12 MG IM (16:08)
[2022-08-11] MEDS: Labetalol 100 MG/20 ML Vial 40 MG IV (16:23)
[2022-08-11] MEDS: Labetalol 100 MG/20 ML Vial 80 MG IV (17:05)
[2022-08-11] MEDS: Labetalol 200 MG Tablet 400 MG PO (17:54)
== END 2022-08-11 19:10 | disposition short-term general hospital (02) ==
LOC: WPOUT 14:04 → WP 14:05
PROVIDERS: Obstetrics & Gynecology; Referring Provider Student in an Organized Health Care Education/Training Program; Visit Provider Student in an Organized Health Care Education/Training Program
DX: O14.93 Unspecified pre-eclampsia, third trimester (principal); Z3A.30 30 weeks gestation of pregnancy
CPT/HCPCS: 96365; 96367; 96366 ×6; 96372; 59025; 59050; 80053; 82570; 84156; 84550; 85027; J7120; J0702